=== PATIENT | male | born 1970 | race Caucasian/White ===

== ENCOUNTER 2020-01-29 20:04 | Emergency (ER) | payer BC ==
[~2020-01-29] VITALS: Ht 188 cm; Wt 95.3 kg
[2020-01-29 20:12] VITALS: BP 146/92
--- NOTE | 2020-01-29 20:25 | NUR ---
49 Y/O MALE C/O LAC ON BRIDGE OF NOSE S/P FALL OFF A DIVING BOARD. BLEEDING CONTROLLED. PT DENIES LOC. PT DENIES DIFFICULTY BREATHING THROUGH NOSE. 12/09 PRESSURE AND NUMBESS PAIN. MEDHX: DENIES NKA
--- NOTE | 2020-01-29 20:35 | NUR ---
PA SIDHU AT BEDSIDE EVALUATING PT
[2020-01-29] MEDS ORDERED: LIDOCAINE MPF 1% 10 MG/ML VIAL INJ ONE (20:45)
[2020-01-29] MEDS ORDERED: ACETAMINOPHEN 325 MG TAB PO ONE (20:45)
[2020-01-29] MEDS ORDERED: BACITRACIN OINT 500 UNITS/GM PKT TP ONE (21:07)
--- NOTE | 2020-01-29 21:10 | NUR ---
Patient has a 3 cm laceration to NOSE BRIDGE. ERAN SIDHU applied sutures using sterile technique. Edges well approximated. Site cleansed with IODINE. No bleeding noted. Pt tolerated well. Lidocaine adm during proedure.
--- NOTE | 2020-01-29 21:12 | NUR ---
BANDAID PLACED ON PT NOSE AFTER BACITRACIN APPLIED
[2020-01-29 21:38] VITALS: BP 146/92
--- NOTE | 2020-01-29 21:38 | NUR ---
Patient discharged with v/s stable. Written and verbal after care instructions given and explained. Patient alert, oriented and verbalized understanding of instructions. Ambulatory with steady gait. All questions addressed prior to discharge. ID band removed. Patient advised to follow up with PMD. Rx of ibuprofen, bacitracin, and keflex given. Patient educated on indication of medication including possible reaction and side effects. Opportunity to ask questions provided and answered.
== END 2020-01-29 21:38 | disposition home or self-care (01) ==
LOC: MED 20:04
DX: S01.21XA Laceration without foreign body of nose, initial encounter (principal); R03.0 Elevated blood-pressure reading, without diagnosis of hypertension; X58.XXXA Exposure to other specified factors, initial encounter; Y93.89 Activity, other specified; Y92.89 Other specified places as the place of occurrence of the external cause; Y99.8 Other external cause status
CPT/HCPCS: 90471; 90715; 99283; J2001